=== PATIENT | female | born 2000 | race Caucasian/White ===

== ENCOUNTER 2020-02-10 22:26 | Emergency (ER) | payer SELFPAY ==
[~2020-02-10] VITALS: Ht 154.9 cm; Wt 77.1 kg
[2020-02-10 22:30] VITALS: BP_SYST 128
[2020-02-10] MEDS ORDERED: LevALBUTEROL HCL 1.25 MG/0.5 ML *CONC.* VIAL.NEB (XOPENEX CONC.) INH ONE (23:30)
[2020-02-11] MEDS ORDERED: LORazepam 1 MG TABLET PO ONE (00:30)
[2020-02-11 01:03] VITALS: BP_SYST 113
== END 2020-02-11 01:03 | disposition home or self-care (01) ==
LOC: SED 22:26
DX: J06.9 Acute upper respiratory infection, unspecified (principal); R06.00 Dyspnea, unspecified; F41.9 Anxiety disorder, unspecified
CPT/HCPCS: 71045; 94640; 99283; J7612